=== PATIENT | male | born 1955 | race Caucasian/White ===

== ENCOUNTER 2019-05-29 11:59 | Emergency (ER) | payer MEDICARE ==
[2019-05-29] MEDS ORDERED: KETOROLAC TROMETHAMINE 15MG/ML ONE (12:51)
[2019-05-29] MEDS ORDERED: ONDANSETRON HCL 4 MG/2 ML VIAL ONE (12:51)
[2019-05-29 12:59] LABS: CREATININE 1.2 mg/dL (0.5-1.5); POTASSIUM 3.2 mmol/L (3.5-5.1)
[2019-05-29] MEDS ORDERED: SODIUM CHLORIDE 0.9% 1000ML 1,000 ML IV ONE (13:01)
[2019-05-29 13:04] LABS: ALBUMIN 3.7 g/dL (3.5-5.0); BILIRUBIN,TOTAL 0.9 mg/dL (0.2-1.0); TOTAL PROTEIN, SERUM 7.2 g/dL (6.0-8.3)
[2019-05-29 13:27] LABS: APPEARANCE,URINE Clear (CLEAR); BILIRUBIN,URINE Negative (NEGATIVE); COLOR,URINE Yellow (YELLOW); GLUCOSE, URINE (UA) Negative (NEGATIVE); KETONES,URINE Negative (NEGATIVE); LEUKOCYTE ESTERASE ,URINE Negative (NEGATIVE); NITRATE,URINE Negative (NEGATIVE); OCCULT BLOOD,URINE Moderate (NEGATIVE); PH,URINE 6.5 (5.0-8.0); PROTEIN,URINE Negative (NEGATIVE); UROBILINOGEN,URINE 0.2 mg/dL (0.2-1.0)
[2019-05-29 13:40] LABS: BASOPHILS % (AUTO) 0.4 % (0.0-5.0); EOSINOPHILS % (AUTO) 1.4 % (0.0-8.0); HEMATOCRIT 52.2 % (42-54); LYMPHOCYTES % (AUTO) 18.4 % (21.0-51.0); MEAN CORPUSCULAR HEMOGLOBIN 30.8 pg (27.0-33.0); MEAN CORPUSCULAR HGB CONC 34.2 g/dL (32.0-36.0); MEAN CORPUSCULAR VOLUME 89.9 fL (79-99); MONOCYTES % (AUTO) 7.3 % (3.0-13.0); NEUTROPHILS % (AUTO) 72.5 % (40.0-77.0); NUCLEATED RED BLOOD CELLS 0.2 % (0.0-0.19); PLATELET COUNT (AUTO) 140 K/uL (130-400); RED BLOOD CELL COUNT(AUTO) 5.81 MIL/uL (4.50-6.20); RED CELL DISTRIBUTION WIDTH 12.6 % (11.0-15.5); WHITE BLOOD COUNT (AUTO) 10.5 K/uL (4.8-10.8)
[2019-05-29 13:45] LABS: BACTERIA,URINE None Seen /HPF (None Seen); SQUAMOUS EPITHELIAL CELL,UR 0-2 /HPF (0-2); WBC,URINE None Seen /HPF (0-1)
[2019-05-29] MEDS ORDERED: MAGNESIUM OXIDE 400 MG TABLET PO ONE (14:11)
[2019-05-29] MEDS ORDERED: POTASSIUM CHLORIDE 20 MEQ ERTAB PO ONE (14:11)
[2019-05-29 14:41] LABS: INR 1.01 (0.85-1.15); PARTIAL THROMBOPLASTIN TIME 24.1 SEC (26.3-35.5); PROTHROMBIN TIME 10.4 SEC (9.6-11.6)
[2019-06-24] MEDS ORDERED: CHOL500050 PO (16:54)
[2019-06-24] MEDS ORDERED: POTA-79 PO (16:54)
[2019-06-24] MEDS ORDERED: ROSU10TA22 PO (16:54)
[2019-06-24] MEDS ORDERED: MAGN400T53 PO (16:54)
[2019-06-24] MEDS ORDERED: HYDR25TA PO (16:54)
== END 2019-05-29 14:25 | disposition home or self-care (01) ==
LOC: EDH 11:59
DX: R10.31 Right lower quadrant pain (principal); E87.6 Hypokalemia; Z88.2 Allergy status to sulfonamides; Z88.8 Allergy status to other drugs, medicaments and biological substances
CPT/HCPCS: 36415; 74176; 80053; 81001; 82550; 84484; 85025; 85610; 85730; 96361; 96374; 96375; 99285; J1885; J2405; J7030

== ENCOUNTER 2019-06-25 08:53 | Day surgery (SDC) | payer MEDICARE ==
[2019-06-24 15:22] VITALS: BP 146/81
[2019-06-24 15:28] LABS: BASOPHILS % (AUTO) 0.7 % (0.0-5.0); EOSINOPHILS % (AUTO) 2.3 % (0.0-8.0); HEMATOCRIT 51.1 % (42-54); LYMPHOCYTES % (AUTO) 29.3 % (21.0-51.0); MEAN CORPUSCULAR HEMOGLOBIN 30.7 pg (27.0-33.0); MEAN CORPUSCULAR HGB CONC 34.6 g/dL (32.0-36.0); MONOCYTES % (AUTO) 9.7 % (3.0-13.0); PLATELET COUNT (AUTO) 169 K/uL (130-400); RED BLOOD CELL COUNT(AUTO) 5.75 MIL/uL (4.50-6.20); RED CELL DISTRIBUTION WIDTH 12.9 % (11.0-15.5); WHITE BLOOD COUNT (AUTO) 8.8 K/uL (4.8-10.8)
[~2019-06-25] VITALS: Ht 180.3 cm; Wt 115.2 kg
[2019-06-25] VITALS (14 sets, daily range): BP systolic 130–146; BP diastolic 61–78
[~2019-06-25 08:53] MED LIST: CHOL500050 PO; HYDR25TA PO; MAGN400T53 PO; POTA-79 PO; ROSU10TA22 PO
[2019-06-25] MEDS ORDERED: LACTATED RINGERS 1000ML 1,000 ML IV ONE (09:21)
[2019-06-25] MEDS: CEFAZOLIN SODIUM 1 GM VIAL IVP SCH ×2 (09:30→13:00)
[2019-06-25] MEDS ORDERED: EPINEPHRINE 1 MG/ML 30ML VIAL IJ ONE (12:19)
[2019-06-25] MEDS ORDERED: LIDOCAINE PF 2% 5ML ABBOJECT ONE (12:26)
[2019-06-25] MEDS ORDERED: ROCURONIUM 10MG/1ML SYR 10 MG/ML ML ONE ×2 (12:27→13:59)
[2019-06-25] MEDS ORDERED: DEXAMETHASONE SOD PHOSPHATE 10MG/ML 1ML VIAL ONE (12:27)
[2019-06-25] MEDS ORDERED: PROPOFOL 10 MG/ML 20ML VIAL IV ONE (12:27)
[2019-06-25] MEDS ORDERED: MIDAZOLAM HCL 1 MG/ML 2ML VIAL ONE (12:27)
[2019-06-25] MEDS ORDERED: FENTANYL CITRATE PF 50 MCG/1 ML 2ML VIAL ONE (12:27)
[2019-06-25] MEDS ORDERED: ONDANSETRON HCL 4 MG/2 ML VIAL ONE (12:27)
[2019-06-25] MEDS ORDERED: ROPIVACAINE 0.5% 5MG/ML 30ML IJ ONE (12:30)
[2019-06-25] MEDS ORDERED: EPHEDRINE SULFATE 50 MG/ML AMPULE ONE (13:54)
[2019-06-25] MEDS ORDERED: GLYCOPYRROLATE 1 MG/5 ML SYRINGE ONE (14:44)
[2019-06-25] MEDS ORDERED: NEOSTIGMINE 5MG/5ML SYR IV ONE (14:44)
[2019-06-25] MEDS ORDERED: HYDR-4457 PO (15:08)
[2019-06-25] MEDS ORDERED: CEPH500B PO (15:08)
[2019-06-25] MEDS ORDERED: MELO-108 PO (15:08)
--- NOTE | 2019-06-25 15:55 | NUR ---
PATIENT ARRIVED PATIENT BROUGHT TO DAY PATIENT VIA STRETCHER BY ERICA LOPEZ. PATIENT [id number], RESPIRATIONS UNLABORED, VITAL SIGNS STABLE. PATIENT DENIES ANY PAIN AT THIS TIME. DRESSING X 3 TO LEFT SHOULDER, DRESSING DRY AND INTACT. REDNESS AND SWELLING NOTED TO LEFT SHOULDER. PATIENT LEFT UPPER EXTREMITY STILL NUMB, PATIENT UNABLE TO MOVE FINGERS TO LEFT HAND. CAPILLARY REFILL <3 SECS TO FINGER TIPS AND RADIAL PULSES STRONG BILATERALLY. SLING PRESENT TO LEFT UPPER EXTREMITY.
--- NOTE | 2019-06-25 16:30 | NUR ---
DISCHARGE INSTRUCTIONS INSTRUCTIONS GIVEN TO PATIENT'S SPOUSE, FOLLOW UP APPOINTMENT PROVIDED AND DR LUIS SHOULDER ARTHROSCOPY INSTRUCTIONS HANDOUT PROVIDED. PATIENT AND SPOUSE BOTH VERBALIZED UNDERSTANDING. ALL QUESTIONS/CONCERNS ANSWERED AND ADDRESSED,
--- NOTE | 2019-06-25 16:40 | NUR ---
DISCHARGED PATIENT DISCHARGED FROM FACILITY VIA WHEELCHAIR BY COURTNEY ZAMORA. PATIENT ASSISTED INTO PRIVATE CAR BY COURTNEY ZAMORA, VEHICLE DRIVEN BY PATIENT'S DAUGHTER.
== END 2019-06-25 16:40 | disposition home or self-care (01) ==
LOC: DAH 08:53
PROVIDERS: ATTEND Orthopaedic Surgery
DX: M75.42 Impingement syndrome of left shoulder (principal); M19.012 Primary osteoarthritis, left shoulder; M75.112 Incomplete rotator cuff tear or rupture of left shoulder, not specified as traumatic; E78.00 Pure hypercholesterolemia, unspecified; E66.01 Morbid (severe) obesity due to excess calories; Z79.899 Other long term (current) drug therapy; Z98.890 Other specified postprocedural states; Z98.84 Bariatric surgery status
CPT/HCPCS: 29822; 29824; 36415; 64415; 85025; 96374; A4215; A4221; A4222; A4223; A4565; A4600; A4649 ×3; A4663; A4930; A5120; A6206; G0168; J0171; J0690; J1100; J2001; J2250; J2405; J2704; J2710; J2795; J3010; J3490 ×2; J7030; J7120

== ENCOUNTER 2021-10-26 07:06 | Day surgery (SDC) | payer MEDICARE ==
[2021-10-23 13:00] LABS: BASOPHILS % (AUTO) 0.7 % (0.0-5.0); HEMATOCRIT 47.3 % (42-54); MEAN CORPUSCULAR HEMOGLOBIN 30.6 pg (27.0-33.0); MEAN CORPUSCULAR HGB CONC 34.5 g/dL (32.0-36.0); MEAN CORPUSCULAR VOLUME 88.9 fL (79-99); MONOCYTES % (AUTO) 9.3 % (3.0-13.0); NEUTROPHILS % (AUTO) 59.8 % (40.0-77.0); PLATELET COUNT (AUTO) 183 K/uL (130-400); RED BLOOD CELL COUNT(AUTO) 5.32 MIL/uL (4.50-6.20); RED CELL DISTRIBUTION WIDTH 12.1 % (11.0-15.5); WHITE BLOOD COUNT (AUTO) 8.4 K/uL (4.8-10.8)
[2021-10-23 13:08] LABS: CREATININE 0.9 mg/dL (0.5-1.5); POTASSIUM 3.4 mmol/L (3.5-5.1)
[~2021-10-26] VITALS: Ht 180.3 cm; Wt 97.8 kg
[2021-10-26] VITALS (16 sets, daily range): BP systolic 59–120; BP diastolic 52–112
[~2021-10-26 07:06] MED LIST changes: +ATOR10TA PO; -CHOL500050 PO; -MAGN400T53 PO; -POTA-79 PO; -ROSU10TA22 PO
[2021-10-26] MEDS ORDERED: 0.9%NACL 1000ML 1,000 ML IV SCH (08:00)
[2021-10-26] MEDS ORDERED: CLINDAMYCIN IVPB 900MG/50ML 50 ML IV PRN (08:00)
[2021-10-26] MEDS ORDERED: LACTATED RINGERS 1000ML 1,000 ML IV ONE (08:05)
[2021-10-26] MEDS ORDERED: MIDAZOLAM HCL 1 MG/ML 2ML VIAL ONE (08:48)
[2021-10-26] MEDS ORDERED: PROPOFOL 10 MG/ML 20ML VIAL IV ONE ×2 (08:49)
[2021-10-26] MEDS ORDERED: FENTANYL CITRATE PF 50 MCG/1 ML 5ML AMP IV ONE (08:49)
[2021-10-26] MEDS ORDERED: FAMOTIDINE 20MG VIAL IV ONE (09:03)
[2021-10-26] MEDS ORDERED: BUPIVACAINE/PF 0.25% 30ML VIAL IJ ONE (09:14)
[2021-10-26] MEDS ORDERED: LIDOCAINE HCL 1% 20 ML VIAL ONE (09:14)
[2021-10-26] MEDS ORDERED: ONDANSETRON 4MG INJ ONE (09:26)
[2021-10-26] MEDS ORDERED: MEPERIDINE-PF 25 MG/ML SYG ONE ×2 (10:14→10:31)
[2021-10-26] MEDS ORDERED: KETOROLAC 15MG/ML VIAL (15MG/ML) ONE (10:50)
== END 2021-10-26 11:40 | disposition home or self-care (01) ==
LOC: DAH 07:06
PROVIDERS: ATTEND Surgery
DX: L72.3 Sebaceous cyst (principal); Z20.822 Contact with and (suspected) exposure to COVID-19; L72.0 Epidermal cyst; F17.210 Nicotine dependence, cigarettes, uncomplicated; Z79.899 Other long term (current) drug therapy; Z88.8 Allergy status to other drugs, medicaments and biological substances; Z90.89 Acquired absence of other organs; Z98.890 Other specified postprocedural states; Z82.49 Family history of ischemic heart disease and other diseases of the circulatory system; Z88.1 Allergy status to other antibiotic agents
CPT/HCPCS: 11406; 36415; 80048; 85025; 87635; 93005; A4215; A4221; A4222; A4223; A4452; A4600; A4663; A6260; C9803; J1885; J2175 ×2; J2250; J2405; J2704 ×2; J3010; J3490 ×3; J7030; J7120